=== PATIENT | male | born 1945 | race Caucasian/White ===

== ENCOUNTER 2017-01-28 10:32 | Inpatient (IN) | payer MEDICARE ==
[~2017-01-28] VITALS: Ht 175.3 cm; Wt 74.7 kg
[2017-01-28] VITALS (14 sets, daily range): BP systolic 119–175; BP diastolic 56–78; PULSE 104–128; RESP 15–22; O2SAT 94–99
[~2017-01-28 10:32] MED LIST: BETA15CR38 TP; CALC500T61 PO; FLUT16SP NS; GABA-504 PO; LISI-567 PO; Lidocaine 1% 50 mL Inj ONE; Propofol 10,000 mCg/mL 20 mL Inj ONE; Rocuronium 10 mg/mL 5 mL Inj ONE; TAMS0.4C29 PO; fentaNYL-PF 50 mCg/mL 2 mL Inj ONE
--- NOTE | 2017-01-28 10:40 | ED.REPORT ---
HPI-General Illness Date of Service Jan 28, 2017 ED Provider: Jerry Alvarado MD Patient is a 71 year old male with a hx of HTN and BPH who presents to the ED complaining of vomiting onset this morning. Associated symptoms include severe lower abdominal pressure and fever onset last night. He describes the pressure as constant with radiation up and to either side of his abdomen though worst in the right lower quadrant. He denies dysuria, hematuria, testicular pain or swelling, constipation, or any other symptoms. He is passing gas normally. Nursing Notes Stated Complaint: FEVER, VOMITING Nursing Notes Reviewed: Yes Allergies: Coded Allergies: erythromycin base (Verified Allergy, Mild, Nausea, 08/03/13) tetracycline (Verified Allergy, Mild, Nausea, 08/03/13) Scheduled Fluticasone Propionate (Fluticasone Propionate Nasal) 16 Gm [place].susp 1 SPRAY NS BID Gabapentin (Gabapentin) 400 Mg Capsule 300 MG PO TID Lisinopril (Lisinopril) 20 Mg Tablet 20 MG PO DAILY Tamsulosin ER (Tamsulosin ER) 0.4 Mg Cap.er.24h 0.8 MG PO DAILY Miscellaneous Medications Betamethasone/Propylene Glyc (Betamethasone Dp Jan 0.05% Crm) 15 Gm Cream..g. 15 GM TP General Time Seen by MD: 10:40 Chief Complaint Vomiting Hx Obtained From: Patient Arrived By: Wheelchair Sudden in Onset?: Yes Onset Occurred: 1 - 4 hours ago Symptom Duration: Since onset Past Medical History Past Medical History HTN asthma BPH Chronic back pain Past Surgical History TURP melanoma excision R hernia repair 2014 Laminectomy Smoking History Never Smoker Social History Other Social History: Good social support, Ambulatory Status Independent Review of Systems Full Review of Systems Constitutional: Reports: Fever GI: Reports: Abdominal pain, Nausea, Vomiting, Denies: Constipation Male: Denies Dysuria, Denies Hematuria, Denies Testicular pain, Denies Testicular swelling Complete sys rev & neg: except as marked. Physical Exam Vital Signs Vital Signs Date Time Temp Pulse Resp B/P Pulse Ox O2 Delivery O2 Flow Rate FiO2 01/28/17 12:51 37.9 114 22 142/63 96 Room Air 01/28/17 10:45 37.5 122 22 175/69 94 Room Air Initial VS: Reviewed, Vital signs abnormal Head / Eyes: Atraumatic, Normocephalic Neck: Supple, Full range of motion Skin: Warm, Dry Neurologic: Alert, Oriented, Nonfocal Psychiatric: Mood/affect normal, Behavior normal, Normal thought content General/Constitutional: Awake, Alert, No acute distress Respiratory / Chest: Atraumatic, Breath sounds NL, Breath sounds = bilat, No respiratory distress Cardiovascular: Heart rate NL, Regular rhythm, Heart sounds NL Good radial pulses Abdomen: Atraumatic, Soft, No distention Diffusely tender with most notable tenderness in the RLQ Back: No CVA tenderness Male Genitourinary: Atraumatic, Inspection NL No palpable inguinal hernia Normal testicular lye Circumcised Interpretation & Diagnostics Lab Results Interpretation Result Diagram: 01/28/17 1119 01/28/17 1119 Test 01/28/17 11:19 White Blood Count 19.4th/mm3 (3.8-10.1) Red Blood Count 4.40mil/mm3 (4.40-5.80) Hemoglobin 13.9g/dL (13.8-17.2) Hematocrit 41.8% (41.0-50.0) Mean Corpuscular Volume 95.0fL (81-100) Mean Corpuscular Hemoglobin 31.6pg (27.0-35.0) Mean Corpuscular Hemoglobin Concent 33.3% (32.0-37.0) Red Cell Distribution Width 12.3% (12.3-15.4) Platelet Count 171bil/L (150-400) Neutrophils (%) (Auto) 91.8% (40-74) Lymphocytes (%) (Auto) 3.9% (14-46) Monocytes (%) (Auto) 3.8% (4-12) Eosinophils (%) (Auto) 0% (0-5) Basophils (%) (Auto) 0.1% (0-3) Prothrombin Time 12.0sec (8.1-12.5) Prothromb Time International Ratio 1.12ratio Sodium Level 138mEq/L (134-144) Potassium Level 4.1mEq/L (3.5-5.2) Chloride Level 100mEq/L (97-108) Carbon Dioxide Level 23mmol/L (18-29) Blood Urea Nitrogen 22mg/dL (8-27) Creatinine 1.12mg/dL (0.76-1.27) Estimat Glomerular Filtration Rate 68mL/min (>59) Glucose Level 153mg/dL (60-99) Lactic Acid Level 1.3mmol/L (0.4-2.0) Calcium Level 9.0mg/dL (8.5-10.1) Magnesium Level 1.8mg/dL (1.6-2.6) Total Bilirubin 1.9mg/dL (0.0-1.2) Aspartate Amino Transf (AST/SGOT) 18U/L (0-50) Alanine Aminotransferase (ALT/SGPT) 13U/L (0-44) Alkaline Phosphatase 83U/L (25-160) Total Protein 7.7g/dL (6.4-8.4) Albumin 3.9g/dL (3.4-5.0) Lipase 35U/L (13-60) CT Abd / Pelvis Interpretation IMPRESSION: 1. The sigmoid colon is partially within the right lower quadrant where it is focally thickened. There are scattered sigmoid diverticula. Small amount of free air adjacent to this loop of sigmoid colon is present. The CT findings are suspicious for perforated sigmoid diverticulitis. A differential diagnosis is acute appendicitis given right lower quadrant pathology. There is an appendicolith at the base of the appendix. The tip of the appendix is distended measuring 14 mm. There is fecal material within the appendiceal lumen. The base of the appendix may be mildly thickened. A small amount of fluid is present in the right lower quadrant. No appendiceal wall thickening in the tip of the appendix. 2. There is a tiny 1 cm fluid collection in the right lower quadrant consistent with a small abscess. No drainable fluid is present. 3. Slightly distended small bowel loops with mildly increased small bowel enhancement, likely secondary to spread inflammation/infection. No evidence for small bowel obstruction. 5. A small amount of free fluid in myocardium. Dictated by: Sonia Nicole M.D. on 01/28/2017 at 12:54 Approved by: Sonia Nicole M.D. on 01/28/2017 at 13:36 Study type: Abdominal CT IV contrast Interpretation / Wet Read by: Interpret - Radiologist Re-Eval/Medical Decision Med Decision/Clinical Course In summary, the patient is a 71-year-old male who presents to the emergency room complaining of severe right lower quadrant abdominal pain, fever and vomiting. Upon arrival he is tachycardic with a heart rate in the 120s and is borderline febrile. He has markedly tenderness of his right lower quadrant and abdomen diffusely. He was treated with the below medications: IV Zofran, hydromorphone, fluids IV cipro and Flagyl Laboratory studies were notable as below: leukocytosis 19.4 hematrocrit 41.8 lactic acid 1.3 coag studies nL Abd CT: 1. The sigmoid colon is partially within the right lower quadrant where it is focally thickened. There are scattered sigmoid diverticula. Small amount of free air adjacent to this loop of sigmoid colon is present. The CT findings are suspicious for perforated sigmoid diverticulitis. A differential diagnosis is acute appendicitis given right lower quadrant pathology. There is an appendicolith at the base of the appendix. The tip of the appendix is distended measuring 14 mm. There is fecal material within the appendiceal lumen. The base of the appendix may be mildly thickened. A small amount of fluid is present in the right lower quadrant. No appendiceal wall thickening in the tip of the appendix. 2. There is a tiny 1 cm fluid collection in the right lower quadrant consistent with a small abscess. No drainable fluid is present. 3. Slightly distended small bowel loops with mildly increased small bowel enhancement, likely secondary to spread inflammation/infection. No evidence for small bowel obstruction. 5. A small amount of free fluid in myocardium. Patient was seen and evaluated by surgery Dr. Reyes. Overall constellation of symptoms and presentation felt to be most consistent with acute appendicitis versus ruptured hollow viscus. He was resuscitated with IV fluids overnight borderline tachycardic. 2 sets of blood cultures were obtained prior to initiating IV antibiotics. Decision was made to take the patient to the operating room for further intervention and exploration. He was transferred in stable condition. Time of Eval: 13:11 Re-Evaluation/Progress Note: Rechecked pt. Discussed plan for admission. Patient understands and agrees with plan. All questions addressed at this time. Consultation : Referral / Consult Name: Luli Reyes MD Consulted With: Surgeon Call Returned at: 13:07 Sap Basis: Requested OR, Accepts admit Note: Discussed pt's case. Accepts pt to surgery Counseled Regarding: Diagnosis, Lab results, Need for admission Discharge & Departure Primary Impression: Acute appendicitis Acute appendicitis type: with generalized peritonitis Qualified Code: K35.2 - Acute appendicitis with generalized peritonitis Additional Impressions: Peritonitis Tachycardia Leukocytosis Leukocytosis type: unspecified Qualified Code: D72.829 - Elevated white blood cell count, unspecified Abdominal pain Abdominal location: generalized Qualified Code: R10.84 - Generalized abdominal pain Nausea and vomiting Vomiting type: unspecified Vomiting Intractability: unspecified Qualified Code: R11.2 - Nausea with vomiting, unspecified Disposition: ADMITTED TO HOSPITAL Discharge Condition All VS Reviewed: Yes Condition: Stable Referrals: Carmen Mota MD (PCP) Vikyibmiguel ángel Attestation Portions of this note were transcribed by Lashell Kraft. I, Dr. Alvarado personally performed the history, physical exam and medical decision-making; I reviewed and confirmed the accuracy of the information in the transcribed note. Signed: Jayden Roberts, 01/28/17 copies to: Carmen Mota MD, Beck O MD Jan 28, 2017 10:40 LASHELL KRAFT Jan 28, 2017 10:52
[2017-01-28] MEDS ORDERED: 0.9% Sodium Chloride 1,000 ML IV ONE ×2 (10:49→12:05)
[2017-01-28] MEDS ORDERED: Ondansetron 2 mg/mL 2 mL Inj IVPUSH ONE (10:50)
[2017-01-28] MEDS ORDERED: HYDROmorphone 0.5 mg/0.5 mL iSecure Syringe IVPUSH PRN (10:50)
[2017-01-28 11:37] LABS: BASOPHILS % (AUTO) 0.1 % (0-3); EOSINOPHILS % (AUTO) 0 % (0-5); MONOCYTES % (AUTO) 3.8 % (4-12); Mean Corpuscular Hemoglobin 31.6 pg (27.0-35.0); NEUTROPHILS % (AUTO) 91.8 % (40-74); Platelet Count 171 bil/L (150-400)
[2017-01-28 12:00] LABS: INR 1.12 ratio
[2017-01-28 12:01] LABS: Magnesium 1.8 mg/dL (1.6-2.6)
[2017-01-28] MEDS ORDERED: Lactated Ringer's 1,000 ML IV SCH ×2 (12:03→14:43)
[2017-01-28] MEDS ORDERED: Ondansetron 2 mg/mL 2 mL Inj IVPUSH PRN ×2 (12:05→14:45)
[2017-01-28] MEDS ORDERED: Alum-Mag Hydrox-Simeth 30 mL Suspension PO PRN (12:05)
[2017-01-28] MEDS ORDERED: metroNIDAZOLE Inj 500 MG in IV Premix 1 EACH IV ONE (13:05)
[2017-01-28] MEDS ORDERED: Ciprofloxacin Inj 400 MG in IV Premix 1 EACH IV ONE (13:05)
--- NOTE | 2017-01-28 13:38 | DRSVH ---
PROCEDURE: CT ABDOMEN AND PELVIS WITH CONTRAST ([id number]) INDICATIONS: pain, most in rlq TECHNIQUE: After the administration of intravenous contrast, 5 mm thick sections acquired from the diaphragm to the symphysis. 5 mm coronal and sagittal reformats were acquired. For radiation dose reduction, the following was used: automated exposure control, adjustment of mA and/or kV according to patient siz e. COMPARISON: None. FINDINGS: Image quality: Excellent. ABDOMEN: Lung bases: Bibasilar atelectasis. Heart size is normal. Solid organs: Liver and spleen are normal in size and enhancement. Gallbladder is normal. Biliary system is non dilated. Pancreas enhances normally. No adrenal nodules. Kidneys demonstrate normal size and enhancement, without hydronephrosis. Peritoneum and bowel: There is focal thickening in sigmoid colon chest of the midline to the right w ith associated inflammatory stranding. Colonic diverticula present. There is small amount of free air within the peritoneal cavity. The findings are suspicious for perforated diverticulitis. A small 1 c m fluid collection is seen adjacent to the sigmoid colon suspicious for a small diverticular abscess. No drainable fluid. Appendix is distended. There is a appendicolith at the base of the appendix. The tip of the appendix measures 14 mm in diameter and filled with fecal material. There is no appendiceal wall thickening. A small amount of free fluid is present in the right lower quadrant. Small bowel loops are filled with fluid and appear slightly distended measuring up to 2.[address] There is mildly increased small bowel enhancement in lower abdomen and pelvis. A small amount of free fluid is present in the right lower quadrant. Nodes and vessels: No retroperitoneal or mesenteric adenopathy by size criteria. Aorta and inferior vena cava are normal in size. Miscellaneous: No ventral hernias. PELVIS: Genitourinary: Bladder wall thickness is normal. Miscellaneous: No inguinal hernias or adenopathy. Bones: No suspicious bony lesions. No vertebral body compression fractures. IMPRESSION: 1. The sigmoid colon is partially within the right lower quadrant where it is focally thickened. Ther e are scattered sigmoid diverticula. Small amount of free air adjacent to this loop of sigmoid colon is present. The CT findings are suspicious for perforated sigmoid diverticulitis. A differential effie gnosis is acute appendicitis given right lower quadrant pathology. There is an appendicolith at the base of the appendix. The tip of the appendix is distended measuring 14 mm. There is fecal material w ithin the appendiceal lumen. The base of the appendix may be mildly thickened. A small amount of flui d is present in the right lower quadrant. No appendiceal wall thickening in the tip of the appendix. 2. There is a tiny 1 cm fluid collection in the right lower quadrant consistent with a small abscess. No drainable fluid is present. 3. Slightly distended small bowel loops with mildly increased small bowel enhancement, likely seconda ry to spread inflammation/infection. No evidence for small bowel obstruction. 5. A small amount of free fluid in myocardium. Dictated by: Sonia Nicole M.D. on 01/28/2017 at 12:54 Approved by: Sonia Nicole M.D. on 01/28/2017 at 13:36
[2017-01-28] MEDS ORDERED: Lactated Ringer's 500 ML IV PRN (14:43)
[2017-01-28] MEDS ORDERED: Phenylephrine 10,000 mCg/mL Inj IVPUSH PRN (14:45)
[2017-01-28] MEDS ORDERED: EPHEDrine Sulfate 50 mg/mL Inj IVPUSH PRN (14:45)
[2017-01-28] MEDS ORDERED: Labetalol 5 mg/mL 20 mL Inj IV PRN (14:45)
[2017-01-28] MEDS ORDERED: HYDROmorphone 1 mg/mL Inj IVPUSH PRN (14:45)
[2017-01-28] MEDS ORDERED: Dexamethasone 4 mg/mL Inj IVPUSH PRN (14:45)
[2017-01-28] MEDS ORDERED: Albuterol-Ipratropium 3 mL Inhalation Solution NEB PRN (14:45)
[2017-01-28] MEDS ORDERED: fentaNYL-PF 50 mCg/mL 2 mL Inj IVPUSH PRN (14:45)
[2017-01-28] MEDS ORDERED: Atropine 0.4 mg/mL Inj IVPUSH PRN (14:45)
[2017-01-28] MEDS ORDERED: MetoCLOpramide 5 mg/mL 2 mL Inj IVPUSH PRN (14:45)
[2017-01-28] MEDS ORDERED: hydrALAZINE 20 mg/mL Inj IVPUSH PRN (14:45)
[2017-01-28] MEDS ORDERED: Glycopyrrolate 0.2 MG/ML 1mL Inj ONE (14:55)
[2017-01-28] MEDS ORDERED: Lactated Ringer's 1,000 ML IV ONE ×3 (14:55→15:57)
[2017-01-28] MEDS ORDERED: Neostigmine 1 mg/mL 10 mL Inj ONE (14:55)
[2017-01-28] MEDS ORDERED: Dexamethasone 4 mg/mL Inj ONE (14:55)
[2017-01-28] MEDS ORDERED: Phenylephrine 10,000 mCg/mL Inj ONE (14:55)
[2017-01-28] MEDS ORDERED: EPHEDrine/NS 5 mg/mL 5 mL Syringe ONE (14:55)
[2017-01-28] MEDS ORDERED: MetoCLOpramide 5 mg/mL 2 mL Inj ONE (14:55)
--- NOTE | 2017-01-28 14:58 | HP ---
[address] [address] HISTORY AND PHYSICAL PATIENT: TIERA SAUER : 1945 MR#: [id number] ADMIT: 01/28/2017 JOB ID: [id number] CHIEF COMPLAINT: A 71-year-old gentleman with acute abdomen seen in consultation at the request of Jerry Alvarado MD. HISTORY OF PRESENT ILLNESS: The patient is a 71-year-old gentleman who was in his usual state of good health until yesterday morning. He started having some abdominal pain around noon yesterday but still had a good appetite. He was even able to have dinner last night. He started having fevers and he had problems with pain all night, but he was able to get some sleep. This morning when he woke up he was still having a lot of pain and because of the pain he was having even trouble getting out of bed because any movement hurt. He was able to make it to the bathroom and had a bowel movement. He does continue to pass some gas. Because of the severe pain they went to [facility] and they were sent to the emergency department from there. In the emergency department he was evaluated and Dr. Alvarado called me with the findings of some free air outside the bowel on the CT scan. He got some relief with the pain medication in the emergency department, but it seems to be wearing off and he is having more pain. He had a normal colonoscopy in 2006 and he is due for his next one this year. OTHER MEDICAL PROBLEMS: 1. Hypertension. 2. Asthma. 3. Benign prostatic hyperplasia. 4. Chronic back pain. PRIOR OPERATIONS: 1. Transurethral resection of prostate. 2. Melanoma excision. 3. Right inguinal hernia repair in 2013. 4. Laminectomy. ALLERGIES: 1. ERYTHROMYCIN. 2. TETRACYCLINE. MEDICATIONS: At home: 1. Calcium. 2. Fluticasone. 3. Gabapentin. 4. Lisinopril. 5. Tamsulosin. SOCIAL HISTORY: He never smoked. No history of alcohol abuse. 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 He is here with his . REVIEW OF SYSTEMS: Twelve point review of systems positive for fever, nausea, and vomiting, in addition to the pertinent positives noted in the history of present illness and other medical problems. FAMILY HISTORY: His daughter and father had appendicitis. INVESTIGATIONS: Labs from October 28, 2016: WBC 19.4, hemoglobin 13.9, platelet count 171. Glucose 153, bilirubin 1.9, albumin 3.9. Normal liver function studies otherwise. Creatinine 1.12. INR 1.12. CT abdomen and pelvis was reviewed with Dr. Sonia Nicole and showed abnormal-appearing appendix with appendicolith at the base and the tip of the appendix distended up to 14 mm. The sigmoid colon looped into the right lower quadrant, was also focally thickened, with some scattered sigmoid diverticula. There was small amount of free air in this region. PHYSICAL EXAMINATION: A 71-year-old gentleman in mild distress. Temperature 37.9, pulse 114, respiratory rate 22, blood pressure 142/63, saturating 96% on room air. Eyes: Normal pupils, conjunctivae. Ears, nose, and throat: Normal external appearance. Neck: No lymphadenopathy or jugular venous distention. Respiratory: Normal effort, clear to auscultation. Cardiovascular: Regular rate and rhythm. Chest: Normal. Gastrointestinal: Tender to palpation, more so in the lower abdomen, maximally in the right lower quadrant with focal peritonitis. Neurologic: No gross deficits. Psych: Alert, appropriate. Musculoskeletal: Normal strength in the extremities. Skin: Normal. ASSESSMENT AND PLAN: A 71-year-old gentleman with an acute abdomen. He was started on broad-spectrum antibiotics by Dr. Alvarado. I recommended laparoscopy with appendectomy and possible sigmoid colectomy with colostomy if he indeed has perforated sigmoid diverticulitis. After discussing the risks, benefits, and alternatives, the patient and his agreed to proceed and we will go ahead expeditiously. ALEX
--- NOTE | 2017-01-28 15:30 | PCM.HPANE ---
Patient Data Date of Service: Jan 28, 2017 Surgeon Admitting Provider: Attending Provider:Sommer Reyes MD Primary Care Physician:Carmen Mota MD Other Provider: Reason for Visit Perforated Diverticulitis Ht/WT & BMI Height (Feet): 5 Height (Inches): 9 Weight (Kilograms): 70.4 Body Mass Index 22.9 Allergies Coded Allergies: erythromycin base (Verified Allergy, Mild, Nausea, 08/03/13) tetracycline (Verified Allergy, Mild, Nausea, 08/03/13) Past Anesthesia History Anesthesia History: Denies:: Anesthesia Reactions, Fam Anesthesia Reaction Diabetes History Hx Diabetes?: No MRSA MRSA: No Medications Hypertension Medication: No Home Meds Incl Beta Jean Paul: No Reported Medications Tamsulosin ER 0.4 Mg Cap.er.24h0.8 Mg PO DAILY 30 Days Ref 0 07/25/14 Lisinopril 20 Mg [id number] Mg PO DAILY 30 Days Ref 0 07/25/14 Gabapentin 400 Mg [id number] Mg PO TID 30 Days Ref 0 07/25/14 Fluticasone Propionate (Fluticasone Propionate Nasal)16 Gm [place].susp1 [place] NS BID #16 GM Ref 0 07/25/14 Betamethasone/Propylene Glyc (Betamethasone Dp Aug 0.05% Crm)15 Gm Cream..g.15 Gm TP 07/25/14 Discontinued Reported Medications Calcium Carbonate (Calcium)500 Mg [id number] Mg PO DAILY 07/25/14 History History of ENT Problems?: Yes HEENT History: Positive for:: Sinus Problem (chronic airway) Denies:: Cataracts Hearing Problem Denture Type: None Teeth Condition: Within Normal Limits Hx of Heart Problems?: Yes Cardiovascular History: Positive for:: Hypertension Denies:: AICD Abdominal Aortic Aneurism Atrial Fibrillation Chest Pain Congestive Heart Failure Heart Murmur Pacemaker Hx of Respiratory Problem?: Yes Respiratory History: Positive for:: Asthma Denies:: COPD Emphysema Oxygen Administration Pneumonia Tuberculosis Use of C-PAP Machine Hx Neurologic Problems?: Yes Neurological History: Positive for:: Headaches (migraine with temporary vision loss left eye a few years ago) Denies:: CVA Multiple Sclerosis Parkinson's Disease Seizures Hx of GI Problems?: Yes (free air in abdomen, possible appy vs sigmoid diverticulitis) Hx of Problems?: No Male Hx: Positive for:: Prostate Problems (TURP, BPH current) Hx Musculoskeletal Problems?: Yes Musculoskeletal History: Positive for:: Back Injury (chronic back pain, compression C 4,5,6) Hx of Psycho/Social Problems?: No Hx Surgeries?: Yes (laminectomy, TURP, melanoma, hernia repair) Hx Any Other Health Problems?: Yes Other History: Positive for:: Cancer (melanoma 2005, facial neck) Denies:: Thyroid Disease History Blood Transfusions: Denies:: Blood Transfusions Hx Diabetes: No Hx Alcohol Use: YesHx Substance Use: No Smoking Status: Never Smoker Stop/Bang Treated for Sleep Apnea?: No Do You Have a CPAP Machine?: No ELDA Risk Assessment: Low Risk, <3 Yes Risk Assessment Category Category 1A: Patient has history of documented sleep apnea, and HAS NOT received any narcotic, sedative or anesthesia administration during this stay. Category 1B: Patient has history of documented sleep apnea, and HAS received any narcotic , sedative or anesthesia administration during this stay Category 2: Patient has SUSPECTED Obstructive Sleep Apnea, and HAS received any narcotic , sedative or anesthesia administration during this stay. Category 3: Patient has SUSPECTED Obstructive Sleep Apnea and HAS NOT received narcotic, sedative or anesthesia administration during this stay. Category 4: Outpatient in Procedural Areas with known sleep apnea or who screen positive for High Risk via the STOP/BANG questionnaire. Exam Exam Vital Signs Vital Signs Date Time Temp Pulse Resp B/P Pulse Ox O2 Delivery O2 Flow Rate FiO2 01/28/17 12:51 37.9 114 22 142/63 96 Room Air 01/28/17 10:45 37.5 122 22 175/69 94 Room Air General Appearance: Alert, Oriented X3, Cooperative HEENT/AIRWAY: MP 2, Neck Movement (> 3 FB, full), Mouth Opening (Wide) Lungs: Clear to Auscultation, Normal Air Movement Heart: Normal S1, Normal S2, Other (tachy) Meds/Labs/Diagnostics Admission Meds Current Medications Sodium Chloride (Normal Saline) 1,000 ml @ 0 mls/hr Q0M ONCE IV Last administered on 01/28/17 11:13; Start 01/28/17 at 10:49; Stop 01/28/17 at 10:51 ; Status DC Ondansetron HCl 8 mg 8 mg ONCE ONCE IVPUSH Last administered on 01/28/17 11: 13; Start 01/28/17 at 10:50; Stop 01/28/17 at 10:51; Status DC Sodium Chloride 1,000 ml @ 0 mls/hr Q0M ONCE IV Last administered on 12:05; Start 01/28/17 at 12:05; Stop 01/28/17 at 12:06; Status DC Metronidazole/ Sodium Chloride 500 mg/Premix 100 ml @ 200 mls/hr ONCE ONCE IV Last administered on 01/28/17 13:26; Start 01/28/17 at 13:05; Stop 01/28/17 at 13:34; Status DC Ciprofloxacin Lactate/Premix (Cipro Inj/IV Premix) 200 ml @ 200 mls/hr ONCE ONCE IV Last administered on 01/28/17 13:26; Start 01/28/17 at 13:05; Stop at 14:04; Status DC Labs Test 01/28/17 11:19 White Blood Count 19.4th/mm3 (3.8-10.1) Red Blood Count 4.40mil/mm3 (4.40-5.80) Hemoglobin 13.9g/dL (13.8-17.2) Hematocrit 41.8% (41.0-50.0) Mean Corpuscular Volume 95.0fL (81-100) Mean Corpuscular Hemoglobin 31.6pg (27.0-35.0) Mean Corpuscular Hemoglobin Concent 33.3% (32.0-37.0) Red Cell Distribution Width 12.3% (12.3-15.4) Platelet Count 171bil/L (150-400) Neutrophils (%) (Auto) 91.8% (40-74) Lymphocytes (%) (Auto) 3.9% (14-46) Monocytes (%) (Auto) 3.8% (4-12) Eosinophils (%) (Auto) 0% (0-5) Basophils (%) (Auto) 0.1% (0-3) Prothrombin Time 12.0sec (8.1-12.5) Prothromb Time International Ratio 1.12ratio Sodium Level 138mEq/L (134-144) Potassium Level 4.1mEq/L (3.5-5.2) Chloride Level 100mEq/L (97-108) Carbon Dioxide Level 23mmol/L (18-29) Blood Urea Nitrogen 22mg/dL (8-27) Creatinine 1.12mg/dL (0.76-1.27) Estimat Glomerular Filtration Rate 68mL/min (>59) Glucose Level 153mg/dL (60-99) Lactic Acid Level 1.3mmol/L (0.4-2.0) Calcium Level 9.0mg/dL (8.5-10.1) Magnesium Level 1.8mg/dL (1.6-2.6) Total Bilirubin 1.9mg/dL (0.0-1.2) Aspartate Amino Transf (AST/SGOT) 18U/L (0-50) Alanine Aminotransferase (ALT/SGPT) 13U/L (0-44) Alkaline Phosphatase 83U/L (25-160) Total Protein 7.7g/dL (6.4-8.4) Albumin 3.9g/dL (3.4-5.0) Lipase 35U/L (13-60) Plan Impression Patient chart reviewed, patient interviewed and anesthestic plan with risks, benefits, and alternatives discussed, and informed consent obtained. NPO per Anesth. Guidelines: Yes ASA Physical Status: ASA3 Severe Disease Anesthetic Plan: GA Bene/Risks/Altern/Consents: Yes HP Complete Prior to Induction: Yes Other SIRS, question sepsis. HR 110-120s, WBC > 15, febrile > 38 Nehemias Moore MD Jan 28, 2017 14:13
[2017-01-28] MEDS ORDERED: Bupivacaine 0.5% 50 mL Inj INFILTRATE ONE (15:53)
[2017-01-28] MEDS ORDERED: Sodium Chloride LOK Flush 10 mL Syringe IVFLUSH PRN (16:30)
[2017-01-28] MEDS ORDERED: Acetaminophen IV 1,000 MG in IV Premix 1 EACH IV SCH (16:30)
--- NOTE | 2017-01-28 16:32 | PCM.SURGPO ---
Immediate Operative Note Date of Surgery: Jan 28, 2017 Pre Operative Diagnosis Acute Abdomen - possible perforated Appendicitis or diverticulitis Post Operative Diagnosis Acute Perforated Appendicitis Procedure Laparoscopic Appendectomy Surgeon and Sales Representative Consultant Surgeon: Luli Reyes MD Assistants: Saturnino Oviedo PAC Findings Perforated Appendicitis with Pus in the RLQ Complications There were no periprocedural complications identified. Surgical Specimen Removed: Yes Specimen sent to Pathology: Yes Anesthetic Administered: GA Grafts, Implants: None Output, Estimated Blood Loss: 0 Blood Admin during surgery: No Attending Statement Lead Sql Developer listed was medically necessary for the successful completion of the case Luli Reyes MD Jan 28, 2017 16:32
[2017-01-28] MEDS ORDERED: Piper-Tazo 3.375 Gm/50 mL D5W Minibag Plus - Q8H over 4 hrs IV ONE ×2 (16:35)
--- NOTE | 2017-01-28 16:53 | OP ---
[address] [address] OPERATIVE REPORT PATIENT: TIERA SAUER : 1945 MR#: [id number] ADMIT: 01/28/2017 JOB ID: [id number] DATE OF SURGERY: 01/28/2017 PREOPERATIVE DIAGNOSIS(ES): Acute abdomen, possible acute perforated appendicitis or sigmoid diverticulitis. POSTOPERATIVE DIAGNOSIS(ES): Acute perforated appendicitis. PROCEDURE PERFORMED: Laparoscopic appendectomy. SURGEON: Luli Reyes MD. WELDING FOREMAN: Saturnino Oviedo PA-C. INDICATIONS: The patient is a 71-year-old gentleman who presented with 24 hours of severe abdominal pain and was found to be febrile and tachycardic in the emergency department with lower abdominal peritonitis. CT findings were concerning for diverticulitis or perforated appendicitis and had a white count close to 20,000. He was started on antibiotics and was taken to the operating room after discussing the risks, benefits, and alternatives. PROCEDURE DETAILS: He was placed in a supine position. Underwent smooth induction of general anesthesia. Lynn catheter was placed. Abdomen was prepped and draped in the usual sterile fashion. Surgical time-out was undertaken using safety checklist, and all were in agreement. We began by making an infraumbilical incision, entered the abdomen safely using open Amanda technique. After that, I noticed inflammation in the right lower quadrant and placed two 5 mm ports, one in the suprapubic location and one in the left lower abdomen. After I mobilized the inflamed small bowel which was stuck to the right lower quadrant, I readily noticed perforated appendix sitting against the pelvic sidewall. At this point, I suctioned out the pus in the area, sent it for culture, and mobilized the appendix bluntly off the retroperitoneum and divided the mesoappendix with electrocautery. I took the dissection all the way down to completely healthy base and divided the appendiceal base with a 45 mm Endo-GAIL stapler and placed it in an EndoCatch bag. After that, I irrigated and suctioned out all fluid from the right lower quadrant and the pelvis and removed the appendix along with the bag through the umbilical port site. After desufflating the abdomen we closed the umbilical port fascia with [id number] 0-Vicryl suture and skin was reapproximated with 4-0 Monocryl. Steri-Strips and sterile dressing were applied. Patient was recovered from anesthesia and was taken to the recovery room in stable condition.
[2017-01-28] MEDS ORDERED: MeTOProlol 1 mg/mL 5 mL Inj ONE (17:02)
[2017-01-28] MEDS ORDERED: MeTOProlol 1 mg/mL 5 mL Inj IVPUSH ONE (17:05)
[2017-01-28 17:52] LABS: APPEARANCE,URINE CLEAR (CLEAR,HAZY); COLOR,URINE YELLOW (YELLOW)
--- NOTE | 2017-01-28 17:52 | PCM.ANEP1 ---
Post Anesthesia PACU Phase 1 Assessment Date of Service: Jan 28, 2017 Vital Signs Vital Signs Date Time Temp Pulse Resp B/P Pulse Ox O2 Delivery O2 Flow Rate FiO2 01/28/17 17:48 37.7 115 20 128/63 Nasal Cannula 2.00 01/28/17 17:20 38.0 114 15 125/59 97 Nasal Cannula 2 01/28/17 17:17 104 15 128/62 96 Nasal Cannula 2 01/28/17 17:08 114 16 134/68 95 Nasal Cannula 2 01/28/17 17:05 114 15 134/64 98 Nasal Cannula 3 01/28/17 17:02 37.9 122 16 137/78 96 Nasal Cannula 3 01/28/17 16:59 127 18 133/64 95 Nasal Cannula 3 01/28/17 16:50 122 15 139/62 99 Simple Mask 9 01/28/17 16:46 126 19 119/61 99 Simple Mask 9 01/28/17 16:41 124 18 132/56 98 Simple Mask 9 01/28/17 16:35 37.5 128 17 139/60 97 Simple Mask 9 01/28/17 12:51 37.9 114 22 142/63 96 Room Air 01/28/17 10:45 37.5 122 22 175/69 94 Room Air Anesthetic Administered: GA Level of Alertness: Awake, talking RICARDO's with Equal Strength: Yes Pain: Yes Nausea or Vomiting: No CV Function & Hydration Stable: Yes Airway Device: Oralpharangeal Airway Oxygen Delivery: Simple Mask Lungs: Normal Air Movement Dermatome Level: Full Sensation Summary Metoprolol given for persistently elevated HR despite fluid resuscitation. BP stable. PACU Phase 2 Assessment Complications: No Follow up Care: N/A Patient Instructions Provided: N/A Nehemias Moore MD Jan 28, 2017 17:52
[2017-01-28 17:53] LABS: OCCULT BLOOD,URINE SMALL (NEGATIVE); UROBILINOGEN,URINE NORMAL (NORMAL)
[2017-01-28] MEDS: Dextrose 5% Lactated Ringer's 1,000 ML IV SCH (18:37)
[2017-01-28] MEDS: Piperacillin-Tazo 3.375 Gm Inj 3.375 GM in Dextrose 5% Minibag Plus 50 ML IV SCH (21:13)
[2017-01-29 02:15] VITALS: BP 127/69; PULSE 82; RESP 20; O2SAT 98
[2017-01-29] MEDS: Dextrose 5% Lactated Ringer's 1,000 ML IV SCH (02:35)
[2017-01-29] MEDS ORDERED: Acetaminophen IV 1,000 MG in IV Premix 1 EACH IV SCH (04:50)
[2017-01-29] MEDS: Piperacillin-Tazo 3.375 Gm Inj 3.375 GM in Dextrose 5% Minibag Plus 50 ML IV SCH ×3 (04:57→20:49)
[2017-01-29 06:43] VITALS: BP 102/64; PULSE 78; RESP 20; O2SAT 95
[2017-01-29 08:11] VITALS: BP 110/67; PULSE 77; RESP 16; O2SAT 94
[2017-01-29] MEDS: Fluticasone 0.05% 15 Spray/2 Gm 16 Gm Nasal Spray NASAL SCH ×2 (08:12→20:30)
[2017-01-29] MEDS ORDERED: ZYL100 PO (10:15)
--- NOTE | 2017-01-29 11:19 | PCM.PNSURG ---
Subjective Date of Service: Jan 29, 2017 Visit Information: Perforated Appendicitis with Peritonitis Laparoscopic Appendectomy 01/28/17 Post-Op Day # 1 Date of Admission: Jan 28, 2017 at 14:19 Hospital Day # 2 Subjective: No nausea, Slowly improving urine stream Objective Vital Sign- Last 8 Hours Date Time Temp Pulse Resp B/P Pulse Ox O2 Delivery O2 Flow Rate FiO2 01/29/17 08:11 36.7 77 16 110/67 94 Room Air 01/29/17 06:43 37.0 78 20 102/64 95 Nasal Cannula 2.00 Intake and Output- Last 8 Hour 01/29/17 Cumulative From/Thru 07:00 01/28/17 10:45 - 01/29/17 06:43 Intake Total 1737 ml 6337 ml Output Total 760 ml 1565 ml Balance 977 ml 4772 ml Intake Oral 800 ml 800 ml IV Total 937 ml 5537 ml Output Urine Total 760 ml 1560 ml Estimated Blood Loss 5 ml # Bowel Movements 0 0 Abdomen: Soft, Other (dressings dry) Result Diagram: 01/28/17 1119 01/28/17 1119 Assessment & Plan Impression Doing well Problems: Plan Advance diet as tolerated Continue IV Antibiotics Ambulate Restart Home meds Continue to hold Lininopril Monitor post-void residuals Luli Reyes MD Jan 29, 2017 11:19
[2017-01-29] MEDS: Ondansetron 2 mg/mL 2 mL Inj IVPUSH PRN ×2 (12:54→13:37)
[2017-01-29 13:43] VITALS: BP 145/73; PULSE 91; RESP 20; O2SAT 94
[2017-01-29] MEDS: Acetaminophen IV 1,000 MG in IV Premix 1 EACH IV PRN (17:26)
[2017-01-29] MEDS: MetoCLOpramide 5 mg/mL 2 mL Inj IVPUSH PRN ×2 (17:26→23:38)
[2017-01-29] MEDS: Dextrose 5% 0.45% NaCl 1,000 ML IV SCH (17:48)
[2017-01-29] MEDS ORDERED: Sodium Biphos-Phos 133 mL Enema RECTAL ONE (18:10)
[2017-01-29 18:14] VITALS: BP 129/68; PULSE 106; RESP 20; O2SAT 95
[2017-01-29 20:40] VITALS: BP 142/61; PULSE 98; RESP 20; O2SAT 92
[2017-01-30] MEDS: Acetaminophen IV 1,000 MG in IV Premix 1 EACH IV PRN (04:20)
[2017-01-30 04:26] VITALS: BP 148/77; PULSE 96; RESP 18; O2SAT 94
[2017-01-30] MEDS: Piperacillin-Tazo 3.375 Gm Inj 3.375 GM in Dextrose 5% Minibag Plus 50 ML IV SCH ×3 (05:21→21:10)
[2017-01-30] MEDS: Dextrose 5% 0.45% NaCl 1,000 ML IV SCH ×2 (05:26→18:18)
[2017-01-30] MEDS: Fluticasone 0.05% 15 Spray/2 Gm 16 Gm Nasal Spray NASAL SCH ×2 (08:27→21:12)
[2017-01-30 08:56] VITALS: BP 142/80; PULSE 97; RESP 16; O2SAT 93
[2017-01-30 12:44] VITALS: BP 146/80; PULSE 96; RESP 18; O2SAT 98
--- NOTE | 2017-01-30 17:22 | PCM.PNSURG ---
Subjective Date of Service: Jan 30, 2017 Visit Information: Perforated Appendicitis with Peritonitis & Bacteremia Laparoscopic Appendectomy 01/28/17 Post-Op Day # 2 Date of Admission: Jan 28, 2017 at 14:19 Hospital Day # 3 Subjective: Few episodes of emesis yesterday. Small bowel movement with Enema today Objective Vital Sign- Last 8 Hours Date Time Temp Pulse Resp B/P Pulse Ox O2 Delivery O2 Flow Rate FiO2 01/30/17 12:44 36.9 96 18 146/80 98 Room Air Intake and Output- Last 8 Hour 01/30/17 Cumulative From/Thru 07:00 01/28/17 10:45 - 01/30/17 06:40 Intake Total 800 ml 8273 ml Output Total 1250 ml 3890 ml Balance -450 ml 4383 ml Intake Oral 800 ml 2520 ml IV Total 5753 ml Output Urine Total 1250 ml 3885 ml Estimated Blood Loss 5 ml # Bowel Movements 0 0 Abdomen: Soft, Distended, Other (Incisions C/D/I) Result Diagram: 01/28/17 1119 01/28/17 1119 Assessment & Plan Impression Doing okay, awaiting return of bowel function Problems: Plan Ambulate Minimize opioids Check CBC, BMP in AM Continue IV fluids, Luli Abdalla MD Jan 30, 2017 17:22
[2017-01-30 21:32] VITALS: BP 163/84; PULSE 102; RESP 16; O2SAT 97
[2017-01-31] MEDS: Piperacillin-Tazo 3.375 Gm Inj 3.375 GM in Dextrose 5% Minibag Plus 50 ML IV SCH ×3 (05:07→21:21)
[2017-01-31] MEDS: MetoCLOpramide 5 mg/mL 2 mL Inj IVPUSH PRN (05:15)
[2017-01-31] MEDS ORDERED: Sodium Chloride LOK Flush 10 mL Syringe IVFLUSH PRN ×2 (06:05)
[2017-01-31] MEDS ORDERED: TPN Per Pharmacist XX ONE (06:05)
[2017-01-31 06:35] LABS: BASOPHILS % (AUTO) 0.1 % (0-3); EOSINOPHILS % (AUTO) 1.6 % (0-5); MONOCYTES % (AUTO) 7.2 % (4-12); Mean Corpuscular Hemoglobin 31.3 pg (27.0-35.0); Mean Corpuscular Volume 96.3 fL (81-100); Platelet Count 203 bil/L (150-400)
[2017-01-31 07:06] LABS: Bilirubin, Direct 0.3 mg/dL (0.0-0.3); Magnesium 1.9 mg/dL (1.6-2.6); Phosphorus 2.1 mg/dL (2.5-4.9)
--- NOTE | 2017-01-31 07:14 | PCM.PNSURG ---
Subjective Date of Service: Jan 31, 2017 Visit Information: Perforated Appendicitis with Peritonitis & Bacteremia Laparoscopic Appendectomy 01/28/17 Post-Op Day # 3 Date of Admission: Jan 28, 2017 at 14:19 Hospital Day # 4 Subjective: Multiple episodes of bilious emesis Objective Intake and Output- Last 8 Hour 01/31/17 Cumulative From/Thru 07:00 01/28/17 10:45 - 01/31/17 06:11 Intake Total 964 ml 9637 ml Output Total 4490 ml Balance 964 ml 5147 ml Intake Oral 2920 ml IV Total 964 ml 6717 ml Output Urine Total 4485 ml Estimated Blood Loss 5 ml # Bowel Movements 1 Abdomen: Soft, Distended Result Diagram: 01/31/17 0513 01/31/17 0513 Assessment & Plan Impression Ileus Problems: Plan PICC, TPN NPO, NG Abd Xray Ambulate, Avoid opioids Continue Luli Abdalla MD Jan 31, 2017 07:14
[2017-01-31 07:17] VITALS: BP 158/80; PULSE 96; RESP 16; O2SAT 92
[2017-01-31 09:07] VITALS: BP 143/84; PULSE 94; RESP 16; O2SAT 92
[2017-01-31] MEDS: Fluticasone 0.05% 15 Spray/2 Gm 16 Gm Nasal Spray NASAL SCH ×2 (09:41→21:21)
[2017-01-31] MEDS: Dextrose 5% 0.45% NaCl 1,000 ML IV SCH ×2 (10:38→14:16)
--- NOTE | 2017-01-31 11:20 | PCM.CONPHA ---
Objective Vital Signs Date Time Temp Pulse Resp B/P Pulse Ox O2 Delivery O2 Flow Rate FiO2 01/31/17 09:07 36.7 94 16 143/84 92 Room Air 01/31/17 07:17 36.7 96 16 158/80 92 Room Air 01/30/17 21:32 37.1 102 16 163/84 97 Room Air 01/30/17 12:44 36.9 96 18 146/80 98 Room Air Intake and Output 01/29/17 01/30/17 01/31/17 00:00 00:00 00:00 Intake Total 4600 ml 2873 ml 1200 ml Output Total 805 ml 1835 ml 1850 ml Balance 3795 ml 1038 ml -650 ml Weight (Kilograms): 77.800 Height (Feet): 5 Height (Inches): 9.00 Test 01/28/17 11:19 01/28/17 17:16 01/31/17 05:13 Prothrombin Time 12.0sec (8.1-12.5) Prothromb Time International Ratio 1.12ratio Lactic Acid Level 1.3mmol/L (0.4-2.0) Lipase 35U/L (13-60) Urine Color Yellow (YELLOW) Urine Appearance Clear (CLEAR,HAZY) Urine pH 6.0 (5.0-8.0) Urine Specific [place] 1.025 (1.003-1.035) Urine Protein Tracemg/dL (NEG,TRACE) Urine Glucose (UA) Negativemg/dL (NEGATIVE) Urine Ketones Negativemg/dL (NEGATIVE) Urine Occult Blood Small (NEGATIVE) Urine Nitrite Negative (NEGATIVE) Urine Bilirubin Negative (NEGATIVE) Urine Urobilinogen Normalmg/dL (NORMAL) Urine Leukocyte Esterase Negative (NEGATIVE) Urine RBC 0-2/hpf (0-2) Urine WBC 0-5/hpf (0-5) Urine Epithelial Cells None/hpf (NONE-MOD) Urine Crystals None seen (NONE SEEN) Urine Bacteria Few/hpf (NONE-FEW) Urine Hyaline Casts None/lpf (NONE) Urine Granular Casts None seen (NONE SEEN) Urine Waxy Casts None seen (NONE SEEN) Urine Red Blood Cell Casts None seen (NONE SEEN) Urine White Blood Cell Casts None seen (NONE SEEN) Urine Mucus None seen (None Seen) Urine Trichomonas None seen (NONE SEEN) Urine Yeast None (NONE SEEN) Urinalysis Comment None Urine Culture Reflexed Not indicated White Blood Count 11.0th/mm3 (3.8-10.1) Red Blood Count 3.77mil/mm3 (4.40-5.80) Hemoglobin 11.8g/dL (13.8-17.2) Hematocrit 36.3% (41.0-50.0) Mean Corpuscular Volume 96.3fL (81-100) Mean Corpuscular Hemoglobin 31.3pg (27.0-35.0) Mean Corpuscular Hemoglobin Concent 32.5% (32.0-37.0) Red Cell Distribution Width 12.2% (12.3-15.4) Platelet Count 203bil/L (150-400) Neutrophils (%) (Auto) 80.0% (40-74) Lymphocytes (%) (Auto) 10.9% (14-46) Monocytes (%) (Auto) 7.2% (4-12) Eosinophils (%) (Auto) 1.6% (0-5) Basophils (%) (Auto) 0.1% (0-3) Sodium Level 139mEq/L (134-144) Potassium Level 3.9mEq/L (3.5-5.2) Chloride Level 101mEq/L (97-108) Carbon Dioxide Level 26mmol/L (18-29) Blood Urea Nitrogen 18mg/dL (8-27) Creatinine 1.06mg/dL (0.76-1.27) Estimat Glomerular Filtration Rate 73mL/min (>59) Glucose Level 126mg/dL (60-99) Calcium Level 8.4mg/dL (8.5-10.1) Phosphorus Level 2.1mg/dL (2.5-4.9) Magnesium Level 1.9mg/dL (1.6-2.6) Total Bilirubin 1.1mg/dL (0.0-1.2) Direct Bilirubin 0.3mg/dL (0.0-0.3) Aspartate Amino Transf (AST/SGOT) 15U/L (0-50) Alanine Aminotransferase (ALT/SGPT) 10U/L (0-44) Alkaline Phosphatase 59U/L (25-160) Total Protein 5.8g/dL (6.4-8.4) Albumin 3.0g/dL (3.4-5.0) Prealbumin 15mg/dL (20-40) Triglycerides Level 119mg/dL (0-149) Assessment/Plan Assessment/Plan PARENTERAL NUTRITION ORDERS 1 31-Jan-17 Standard Hang Time: 2100 Substrates Total kcal: 960 AMINO ACIDS 50 g DEXTROSE 150 g Total Volume (mL): 1500 LIPIDS 25 g Sterile Water for Injection mL To Infuse Over (hrs): 24 Total Volume 1500 mL At at a rate of (mL/hr): 63 Additives Sodium Chloride 90 mEq "typical" daily requirements Sodium Acetate 20 mEq Sodium 50-120mEq Potassium Chloride 10 mEq Potassium 60-120mEq Potassium Phosphate 40 mEq Phosphate 20-40mEq Calcium Gluconate 8 mEq Magnesium 8-32mEq Magnesium Sulfate 4 mEq Calcium 9-22mEq Acetate* 80-120mEq Chloride* 80-120mEq Regular Insulin 0 units *Depending on acid-base status Famotidine 0 mg Multivitamins 1 std dose Insulin Regimen Trace Elements 1 std dose none Thiamine 100 mg Regular Low Intensity Subcut Folic Acid 1 mg Regular Medium Intensity Subcut Ascorbic Acid 500 mg Regular High Intensity Subcut Regular Insulin Infusion Other: Special Instructions: To be infused via central line only. For delay or inturruption of TPN contact the pharmacist for alternative replacement solution. Signature Date: Mikael Shankar 0 [facility] Home Kim Pharm.D Jan 31, 2017 11:20
--- NOTE | 2017-01-31 14:37 | DRSVH ---
PROCEDURE: X-RAY PICC LINE PLACEMENT BY NURSE ([id number]) INDICATIONS: tpn COMPARISON: None. FINDINGS: PICC was placed by the intravenous therapy team from the right side. Fluoroscopic spot fi lm demonstrates tip of PICC in the lower SVC. IMPRESSION: Tip of PICC lies within the lower SVC. Dictated by: Baldemar ORTEGA Interpreted: Brennan Stewart MD on 01/31/2017 at 13:49 Approved by: Brennan Stewart M.D. on 01/31/2017 at 14:35
[2017-01-31 16:18] VITALS: BP 152/80; PULSE 86; RESP 16; O2SAT 96
--- NOTE | 2017-01-31 17:06 | DRSVH ---
PROCEDURE: X-RAY ABDOMEN WITH ERECT AND/OR DECUBITUS VIEWS ([id number]) INDICATIONS: POST OPERATIVE; POSSIBLE ILEUS TECHNIQUE: 2 views of the abdomen were acquired. COMPARISON: [facility], CT, CT ABD PELVIS W CON, 01/28/2017, 12:28. FINDINGS: Surgical changes and devices: L4-L5 pedicle screws.. Bowel: Abnormal bowel gas pattern is present. Asymmetric dilatation of small bowel throughout the a bdomen and pelvis with paucity of gas within the colon. Differential air-fluid levels noted on the u pright examination. No pneumatosis or bowel wall thickening. No pneumoperitoneum. Bibasilar airspace opacities present in small left effusion. Soft tissues: No masses; visualized solid organ contours appear normal in size. No suspicious abdom inal calcifications. Bones: No suspicious bony abnormalities. IMPRESSION: 1. Small bowel obstruction. 2. Bibasilar atelectasis versus aspiration or pneumonia. Correlate clinically. Dictated by: Baldemar Boudreaux A Interpreted: Samantha Capone MD on 01/31/2017 at 11:00 Approved by: Samantha Capone M.D. on 01/31/2017 at 17:04
[2017-01-31 21:00] VITALS: BP 151/76; PULSE 84; RESP 16; O2SAT 96
[2017-01-31] MEDS: TPN Per Pharmacist XX SCH (21:22)
[2017-01-31] MEDS: Total Parenteral Nutrition 1 BAG IV SCH (21:22)
[2017-02-01] MEDS: Piperacillin-Tazo 3.375 Gm Inj 3.375 GM in Dextrose 5% Minibag Plus 50 ML IV SCH ×3 (05:04→21:28)
[2017-02-01 05:30] VITALS: BP 142/68; PULSE 79; RESP 16; O2SAT 92
[2017-02-01 08:00] LABS: Magnesium 2.2 mg/dL (1.6-2.6); Phosphorus 3.3 mg/dL (2.5-4.9)
[2017-02-01 08:10] VITALS: BP 147/80; PULSE 76; RESP 16; O2SAT 95
[2017-02-01] MEDS: Fluticasone 0.05% 15 Spray/2 Gm 16 Gm Nasal Spray NASAL SCH ×2 (08:20→21:28)
[2017-02-01] MEDS: MetoCLOpramide 5 mg/mL 2 mL Inj IVPUSH PRN ×2 (09:06→14:18)
--- NOTE | 2017-02-01 10:39 | PCM.PHAPRO ---
Progress TPN PER PHARMACY PARENTERAL NUTRITION ORDERS 2 - Standard Hang Time: 2100 Substrates Total kcal: 960 AMINO ACIDS 50 g DEXTROSE 150 g Total Volume (mL): 1500 LIPIDS 25 g Sterile Water for Injection mL To Infuse Over (hrs): 24 Total Volume 1500 mL At at a rate of (mL/hr): 63 Additives Sodium Chloride 90 mEq "typical" daily requirements Sodium Acetate 20 mEq Sodium 50-120mEq Potassium Chloride 10 mEq Potassium 60-120mEq Potassium Phosphate 40 mEq Phosphate 20-40mEq Calcium Gluconate 10 mEq Magnesium 8-32mEq Magnesium Sulfate 4 mEq Calcium 9-22mEq Acetate* 80-120mEq Chloride* 80-120mEq Regular Insulin 0 units *Depending on acid-base status Famotidine 0 mg Multivitamins 1 std dose Insulin Regimen Trace Elements 1 std dose none Thiamine 100 mg Regular Low Intensity Subcut Folic Acid 1 mg Regular Medium Intensity Subcut Ascorbic Acid 500 mg Regular High Intensity Subcut Regular Insulin Infusion Other: Special Instructions: To be infused via central line only. For delay or inturruption of TPN contact the pharmacist for alternative replacement solution. Signature Date: Mikael Shankar [address] [facility] Pharmacy will continue to follow, thank you. Kimberly Machado PharmD Feb 01, 2017 10:39
[2017-02-01 16:27] VITALS: BP 161/80; PULSE 75; RESP 18; O2SAT 95
[2017-02-01] MEDS: Total Parenteral Nutrition 1 BAG IV SCH (21:25)
[2017-02-01] MEDS: TPN Per Pharmacist XX SCH (21:28)
[2017-02-01 21:40] VITALS: BP 158/81; PULSE 77; RESP 18; O2SAT 95
[2017-02-02] MEDS: MetoCLOpramide 5 mg/mL 2 mL Inj IVPUSH PRN ×2 (00:25→23:56)
[2017-02-02 05:10] VITALS: BP 130/77; PULSE 77; RESP 16; O2SAT 95
[2017-02-02] MEDS: Piperacillin-Tazo 3.375 Gm Inj 3.375 GM in Dextrose 5% Minibag Plus 50 ML IV SCH ×3 (05:21→21:25)
[2017-02-02 05:38] LABS: Mean Corpuscular Hemoglobin 31.3 pg (27.0-35.0); Mean Corpuscular Volume 93.2 fL (81-100); Platelet Count 223 bil/L (150-400)
[2017-02-02 05:52] LABS: BASOPHILS % (AUTO) 0 % (0-3); EOSINOPHILS % (AUTO) 6 % (0-5); MONOCYTES % (AUTO) 10 % (4-12); NEUTROPHILS % (AUTO) 70 % (40-74)
[2017-02-02 05:58] LABS: Magnesium 1.9 mg/dL (1.6-2.6)
[2017-02-02 08:07] VITALS: BP 154/72; PULSE 67; RESP 14; O2SAT 96
--- NOTE | 2017-02-02 09:39 | PATH ---
SURGICAL PATHOLOGY Attending Physician:Luli Reyes MD CASE STATUS: Signed Out PATIENT NAME: TIERA SAUER PID: [id number] : 1945 DATE COLLECTED:01/28/2017 00:00 SPECIMEN: Appendix CLINICAL HISTORY: ACUTE ABDOMEN POSSIBLE PERFORATED APPENDIX 1). APPENDIX FINAL DIAGNOSIS: Appendix, Appendectomy: Acute suppurative appendicitis with serositis. No evidence of neoplasm. ICD10: K35.80 GROSS DESCRIPTION: The specimen is received in one formalin filled container labeled with the patient's name, sublabeled "appendix" and consists of one cylinder of call appendix measuring 6.0 x 1.2 x 1.2 CM. The serosal surface is light call, smooth and glistening. There is a large amount of attached fatty tissue. Sectioning reveals a wall to be thickened to 0.2-0.3 CM. The lumen contains a call-brown friable to semisolid material. Rep. sections including the tip (sectioned longitudinally), proximal margin (inked blue), and random cross-sections are submitted in one cassette. 01/31/2017MA ICD-9 CODES: CPT CODES: 1: 57908 Electronically Signed Out Lillie Dinh MD [facility] Pathology [facility] [address], [place] [address] Technical component performed at [facility], [address] [place] [address] Ave[address], [place], [address]
[2017-02-02] MEDS ORDERED: Sodium Biphos-Phos 133 mL Enema RECTAL ONE (10:20)
--- NOTE | 2017-02-02 10:22 | DRSVH ---
PROCEDURE: X-RAY ABDOMEN WITH ERECT AND/OR DECUBITUS VIEWS ([id number]) INDICATIONS: f/u ileus TECHNIQUE: 2 views of the abdomen were acquired. COMPARISON: [facility], CT, CT ABD PELVIS W CON, 01/28/2017, 12:28. [facility] al, CR, XR ABD W ERECT + OR DECUB 2 VW, 01/31/2017, 9:52. FINDINGS: Surgical changes and devices: L4-L5 pedicle screws.. Bowel: Abnormal bowel gas pattern is present. Asymmetric dilatation of small bowel throughout the a bdomen and pelvis with paucity of gas within the colon. Small bowel gaseous distention has increased from prior examination. Differential air-fluid levels noted on the upright examination. No pneumato sis or bowel wall thickening. No pneumoperitoneum. Bibasilar airspace opacities present in small left effusion. Soft tissues: No masses; visualized solid organ contours appear normal in size. No suspicious abdom inal calcifications. Bones: No suspicious bony abnormalities. IMPRESSION: 1. Persistent small bowel obstructive pattern with interval increase in degree of gaseous distention of small bowel loops now measuring up to 5.7 cm in diameter. If indicated repeat CT could be perform ed. 2. Bibasilar atelectasis versus aspiration or pneumonia. Correlate clinically. Dictated by: Baldemar ORTEGA Interpreted: Jasper Gonzalez MD on 02/02/2017 at 9:57 Approved by: Jasper Gonzalez M.D. on 02/02/2017 at 10:20
--- NOTE | 2017-02-02 10:47 | PCM.PHAPRO ---
Progress TPN PER PHARMACY Wt: 77.4 - remains stable P: K continues to trend down, will increase KCl to 50 mEq Mg 1.9 this morning - increased Mg in mirella's TPN PARENTERAL NUTRITION ORDERS 3 02-Feb-17 Standard Hang Time: 2100 Substrates Total kcal: 1465 AMINO ACIDS 75 g DEXTROSE 225 g Total Volume (mL): 1500 LIPIDS 40 g Sterile Water for Injection mL To Infuse Over (hrs): 24 Total Volume 1500 mL At at a rate of (mL/hr): 63 Additives Sodium Chloride 90 mEq "typical" daily requirements Sodium Acetate 20 mEq Sodium 50-120mEq Potassium Chloride 50 mEq Potassium 60-120mEq Potassium Phosphate 40 mEq Phosphate 20-40mEq Calcium Gluconate 10 mEq Magnesium 8-32mEq Magnesium Sulfate 8 mEq Calcium 9-22mEq Acetate* 80-120mEq Chloride* 80-120mEq Regular Insulin 0 units *Depending on acid-base status Famotidine 0 mg Multivitamins 1 std dose Insulin Regimen Trace Elements 1 std dose none Thiamine 100 mg Regular Low Intensity Subcut Folic Acid 1 mg Regular Medium Intensity Subcut Ascorbic Acid 500 mg Regular High Intensity Subcut Regular Insulin Infusion Other: Special Instructions: To be infused via central line only. For delay or inturruption of TPN contact the pharmacist for alternative replacement solution. Signature Date: Mikael Shankar [address] [facility] Pharmacy will continue to follow, thank you! Kimberly Machado PharmD Feb 02, 2017 10:47
[2017-02-02] MEDS: Fluticasone 0.05% 15 Spray/2 Gm 16 Gm Nasal Spray NASAL SCH ×2 (13:21→21:25)
[2017-02-02 13:37] VITALS: BP 147/82; PULSE 66; RESP 18; O2SAT 97
--- NOTE | 2017-02-02 17:45 | PCM.PNSURG ---
Subjective Date of Service: Feb 01, 2017 Visit Information: Perforated Appendicitis with Peritonitis & Sepsis Laparoscopic Appendectomy 01/28/17 Post-Op Day # 4 Date of Admission: Jan 28, 2017 at 14:19 Hospital Day # 5 Subjective: No Appetitte, Still passing stool Abdomen full but soft Assessment & Plan Impression Stable, slow improvement in Ileus Problems: Plan TPN, NPO Abd Xray & CBC Jose Armando Ambulate, Avoid opioids Continue Luli Abdalla MD Feb 02, 2017 17:45
--- NOTE | 2017-02-02 17:47 | PCM.PNSURG ---
Subjective Date of Service: Feb 02, 2017 Visit Information: Perforated Appendicitis with Peritonitis & Sepsis Laparoscopic Appendectomy 01/28/17 Post-Op Day # 5 Date of Admission: Jan 28, 2017 at 14:19 Hospital Day # 6 Subjective: Continues to feel better. Passed stool & gas with enema Objective Vital Sign- Last 8 Hours Date Time Temp Pulse Resp B/P Pulse Ox O2 Delivery O2 Flow Rate FiO2 02/02/17 13:37 36.6 66 18 147/82 97 Room Air Intake and Output- Last 8 Hour 02/02/17 Cumulative From/Thru 07:00 01/28/17 10:45 - 02/02/17 06:51 Intake Total 922 ml 92205 ml Output Total 425 ml 7090 ml Balance 497 ml 6887 ml Intake Oral 200 ml 4490 ml IV Total 100 ml 8355 ml TPN/PPN 622 ml 1132 ml Output Urine Total 425 ml 7085 ml Estimated Blood Loss 5 ml # Bowel Movements 3 12 Result Diagram: 02/02/17 0520 02/02/17 0520 Diagnostics: Xray shows dilated bowel but lot more gas in the colon Assessment & Plan Impression Doing well Problems: Plan Ambulate NPO, TPN Zosyn Gastrograffin challenge Luli Reyes MD Feb 02, 2017 17:47
[2017-02-02 20:10] VITALS: BP 184/90; PULSE 80; RESP 16; O2SAT 96
[2017-02-02] MEDS: Total Parenteral Nutrition 1 BAG IV SCH (21:25)
[2017-02-02] MEDS: TPN Per Pharmacist XX SCH (21:26)
[2017-02-03] MEDS: MetoCLOpramide 5 mg/mL 2 mL Inj IVPUSH PRN ×3 (02:00→13:23)
[2017-02-03] MEDS: Piperacillin-Tazo 3.375 Gm Inj 3.375 GM in Dextrose 5% Minibag Plus 50 ML IV SCH ×3 (04:30→21:08)
[2017-02-03 05:25] VITALS: BP 162/78; PULSE 75; RESP 18; O2SAT 94
[2017-02-03 05:42] LABS: Magnesium 2.1 mg/dL (1.6-2.6); Phosphorus 3.2 mg/dL (2.5-4.9)
--- NOTE | 2017-02-03 09:06 | DRSVH ---
PROCEDURE: X-RAY ABDOMEN WITH ERECT AND/OR DECUBITUS VIEWS ([id number]) INDICATIONS: GASTROGRAFFIN STUDY TECHNIQUE: 2 views of the abdomen were acquired at 8:22 AM. Oral Gastrografin contrast was administ ered the prior evening at 6:40 PM. COMPARISON: [facility], CR, XR ABD W ERECT + OR DECUB 2 VW, 02/02/2017, 9:30. FINDINGS: Surgical changes and devices: Postsurgical changes are redemonstrated in the lower lumbar spine. Bowel: No pneumoperitoneum. There are persistent dilated loops of small bowel, measuring up to 6 cm in diameter with multiple air-fluid levels compatible with obstruction. There is dense oral contras t material demonstrated within the stomach and duodenum. In addition, there is also oral contrast de monstrated within the colon including rectosigmoid colon. Soft tissues: No suspicious abdominal calcifications. Bones: No suspicious bony abnormalities. IMPRESSION: 1. Persistent dilated loops of small bowel with air-fluid levels consistent with small bowel obstruc tion. However, presence of oral contrast in the rectosigmoid colon suggests an incomplete obstructio n. Dictated by: Andrea Hughes M.D. on 02/03/2017 at 8:58 Approved by: Andrea Hughes M.D. on 02/03/2017 at 9:04
[2017-02-03] MEDS: Fluticasone 0.05% 15 Spray/2 Gm 16 Gm Nasal Spray NASAL SCH ×2 (09:09→20:30)
--- NOTE | 2017-02-03 11:39 | PCM.PHAPRO ---
Progress TPN PER PHARMACY PARENTERAL NUTRITION ORDERS 4 - Standard Hang Time: 2100 Substrates Total kcal: 1465 AMINO ACIDS 75 g DEXTROSE 225 g Total Volume (mL): 1500 LIPIDS 40 g Sterile Water for Injection mL To Infuse Over (hrs): 24 Total Volume 1500 mL At at a rate of (mL/hr): 63 Additives Sodium Chloride 110 mEq "typical" daily requirements Sodium Acetate 20 mEq Sodium 50-120mEq Potassium Chloride 40 mEq Potassium 60-120mEq Potassium Phosphate 40 mEq Phosphate 20-40mEq Calcium Gluconate 10 mEq Magnesium 8-32mEq Magnesium Sulfate 8 mEq Calcium 9-22mEq Acetate* 80-120mEq Chloride* 80-120mEq Regular Insulin 0 units *Depending on acid-base status Famotidine 0 mg Multivitamins 1 std dose Insulin Regimen Trace Elements 1 std dose none Thiamine 100 mg Regular Low Intensity Subcut Folic Acid 1 mg Regular Medium Intensity Subcut Ascorbic Acid 500 mg Regular High Intensity Subcut Regular Insulin Infusion Other: Special Instructions: To be infused via central line only. For delay or inturruption of TPN contact the pharmacist for alternative replacement solution. Signature Date: Mikael Shankar [address] [facility] Pharmacy will continue to follow, thank you! Kimberly Machado PharmD Feb 03, 2017 11:38
[2017-02-03 15:47] VITALS: BP 172/70; PULSE 73; RESP 18; O2SAT 97
--- NOTE | 2017-02-03 19:47 | DRSVH ---
PROCEDURE: X-RAY GASTROGRAFIN CHALLENGE, 1 VIEW ABDOMEN INDICATIONS: HISTORY OF ILEUS; NG TUBE PLACEMENT TECHNIQUE: One view of the abdomen acquired. COMPARISON: [facility], CR, XR ABD W ERECT + OR DECUB 2 VW, 02/03/2017, 8:22. FINDINGS: Surgical changes and devices: Lower lumbar fixation hardware. Nasogastric tube is present with distal aspect projecting below the hemidiaphragm. Bowel: Bowel gas pattern demonstrates dilated prominent loops of small bowel. Contrast is noted with in the rectum. is noted within the rectum. Soft tissues: No suspicious abdominal calcifications. Visualized solid organ contours appear normal in size. Bones: No suspicious bony lesions. IMPRESSION: Nasogastric tube as above. Dilated loops of consistent partial small bowel traction. smal l bowel Dictated by: Irena Lowe M.D. on 02/03/2017 at 19:45 Approved by: Irena Lwoe M.D. on 02/03/2017 at 19:46
[2017-02-03 20:15] VITALS: BP 173/85; PULSE 77; RESP 20; O2SAT 97
[2017-02-03] MEDS: TPN Per Pharmacist XX SCH (20:46)
[2017-02-03] MEDS: Total Parenteral Nutrition 1 BAG IV SCH (21:08)
--- NOTE | 2017-02-04 00:10 | PCM.PNSURG ---
Subjective Date of Service: Feb 03, 2017 Visit Information: Perforated Appendicitis with Peritonitis & Sepsis Laparoscopic Appendectomy 01/28/17 Post-Op Day # 6 Date of Admission: Jan 28, 2017 at 14:19 Hospital Day # 7 Subjective: Still some nausea despite partial passage of contrast and stool Objective Vital Sign- Last 8 Hours Date Time Temp Pulse Resp B/P Pulse Ox O2 Delivery O2 Flow Rate FiO2 02/03/17 22:40 Supplement Oxygen 02/03/17 20:15 36.7 77 20 173/85 97 Room Air Intake and Output- Last 8 Hour 02/04/17 Cumulative From/Thru 07:00 01/28/17 10:45 - 02/03/17 22:40 Intake Total 71717 ml Output Total 44135 ml Balance 5760 ml Intake Oral 4890 ml IV Total 9258 ml TPN/PPN 2577 ml Output Urine Total 9210 ml Gastric Drainage Total 850 ml Emesis 900 ml Estimated Blood Loss 5 ml # Bowel Movements 15 Abdomen: Soft, Distended Result Diagram: 02/02/17 0520 02/03/17 0450 Assessment & Plan Impression Ileus - not resolved Problems: Plan Ambulate NPO, TPN Placed NG to suction Luli Abdalla MD Feb 04, 2017 00:10
[2017-02-04] MEDS: Piperacillin-Tazo 3.375 Gm Inj 3.375 GM in Dextrose 5% Minibag Plus 50 ML IV SCH (04:54)
[2017-02-04 05:14] VITALS: BP 168/80; PULSE 78; RESP 20; O2SAT 97
[2017-02-04 05:36] LABS: Phosphorus 2.9 mg/dL (2.5-4.9)
[2017-02-04] MEDS: Fluticasone 0.05% 15 Spray/2 Gm 16 Gm Nasal Spray NASAL SCH ×2 (08:30→20:04)
--- NOTE | 2017-02-04 09:59 | PCM.PHAPRO ---
Progress Date of Service: Feb 04, 2017 TPN PARENTERAL NUTRITION ORDERS 5 04-Feb-17 Standard Hang Time: 2100 Substrates Total kcal: 1465 AMINO ACIDS 75 g DEXTROSE 225 g Total Volume (mL): 1500 LIPIDS 40 g Sterile Water for Injection mL To Infuse Over (hrs): 24 Total Volume 1500 mL At at a rate of (mL/hr): 63 Additives Sodium Chloride 110 mEq "typical" daily requirements Sodium Acetate 20 mEq Sodium 50-120mEq Potassium Chloride 40 mEq Potassium 60-120mEq Potassium Phosphate 40 mEq Phosphate 20-40mEq Calcium Gluconate 10 mEq Magnesium 8-32mEq Magnesium Sulfate 8 mEq Calcium 9-22mEq Acetate* 80-120mEq Chloride* 80-120mEq Regular Insulin 0 units *Depending on acid-base status Famotidine 0 mg Multivitamins 1 std dose Insulin Regimen Trace Elements 1 std dose none Thiamine 100 mg Regular Low Intensity Subcut Folic Acid 1 mg Regular Medium Intensity Subcut Ascorbic Acid 500 mg Regular High Intensity Subcut Regular Insulin Infusion Other: Jean Carlos Howell Feb 04, 2017 09:59
--- NOTE | 2017-02-04 10:14 | PROG NOTE ---
[address] [address] PROGRESS NOTE PATIENT: TIERA SAUER : 1945 MR#: [id number] ADMIT: 01/28/2017 JOB ID: [id number] DATE: 02/04/2017 SUBJECTIVE: The patient is seen in followup. He had a very small bowel movement overnight. He has no nausea. He is complaining of discomfort mainly from the nasogastric tube. He denies significant abdominal pain. He thinks that he walked approximately 1 mile yesterday. OBJECTIVE: Temperature 36.8, pulse 78, blood pressure 168/80, saturation 97% on room air. In general, he is sitting up in bed, in no acute distress. HEENT: Nasogastric tube is putting out bilious fluid, 850 cc yesterday and 250 cc overnight. Output is bilious. Chest clear to auscultation bilaterally. Heart: Regular rate and rhythm. No murmurs. Abdomen is soft, but mildly distended. Bowel tones are present but hypoactive. His incisions are clean with no erythema. ASSESSMENT AND PLAN: A 72-year-old man status post laparoscopic appendectomy for perforated appendicitis, with postoperative ileus which persists. Recommend continuing TPN and nasogastric tube decompression for today. Because of the persistence of his ileus, we will go slow, and when the tube is ready to be removed, we will likely have it clamped for several hours before removal. He has completed seven days of antibiotics so we will stop antibiotics today.
[2017-02-04 12:07] VITALS: BP 156/83; PULSE 80; RESP 18; O2SAT 98
[2017-02-04 20:43] VITALS: BP 166/76; PULSE 74; RESP 20; O2SAT 96
[2017-02-04] MEDS: Total Parenteral Nutrition 1 BAG IV SCH (21:14)
[2017-02-04] MEDS: TPN Per Pharmacist XX SCH (21:14)
[2017-02-05 05:53] VITALS: BP 160/79; PULSE 82; RESP 16; O2SAT 97
[2017-02-05] MEDS: Fluticasone 0.05% 15 Spray/2 Gm 16 Gm Nasal Spray NASAL SCH ×2 (07:48→20:30)
--- NOTE | 2017-02-05 09:35 | PCM.PHAPRO ---
Progress Date of Service: Feb 05, 2017 TPN PARENTERAL NUTRITION ORDERS 6 05-Feb-17 Standard Hang Time: 2100 Substrates Total kcal: 1835 AMINO ACIDS 100 g DEXTROSE 275 g Total Volume (mL): 1800 LIPIDS 50 g Sterile Water for Injection mL To Infuse Over (hrs): 24 Total Volume 1800 mL At at a rate of (mL/hr): 75 Additives Sodium Chloride 110 mEq "typical" daily requirements Sodium Acetate 20 mEq Sodium 50-120mEq Potassium Chloride 40 mEq Potassium 60-120mEq Potassium Phosphate 40 mEq Phosphate 20-40mEq Calcium Gluconate 10 mEq Magnesium 8-32mEq Magnesium Sulfate 8 mEq Calcium 9-22mEq Acetate* 80-120mEq Chloride* 80-120mEq Regular Insulin 0 units *Depending on acid-base status Famotidine 0 mg Multivitamins 1 std dose Insulin Regimen Trace Elements 1 std dose none Thiamine 100 mg Regular Low Intensity Subcut Folic Acid 1 mg Regular Medium Intensity Subcut Ascorbic Acid 500 mg Regular High Intensity Subcut Regular Insulin Infusion Other: Special Instructions: To be infused via central line only. For delay or inturruption of TPN contact the pharmacist for alternative replacement solution. Jean Carlos Howell Feb 05, 2017 09:34
--- NOTE | 2017-02-05 10:09 | PROG NOTE ---
[address] [address] PROGRESS NOTE PATIENT: TIERA SAUER : 1945 MR#: [id number] ADMIT: 01/28/2017 JOB ID: [id number] DATE: 02/05/2017 SUBJECTIVE: The patient is seen in followup. Yesterday his nasogastric tube inadvertently fell out while he was ambulating. Decision was made not to replace it. He has done well with no nausea overnight. He had a small liquid bowel movement. He complains of very little abdominal discomfort. OBJECTIVE: Temperature 36.9, pulse 82, blood pressure 160/79. Saturation 97% on room air. In general, he is resting in bed in no acute distress. Chest is clear. Heart regular rate and rhythm, no murmurs. Abdomen is mildly distended. Bowel tones are quiet. His incisions are clean with no erythema. ASSESSMENT AND PLAN: A 72-year-old man with a perforated appendicitis status post laparoscopic appendectomy complicated by postoperative ileus, which persists to some extent. We are going to hold off on replacing his nasogastric tube for now. I will recheck some labs tomorrow including CBC and complete metabolic panel. We may need to get a CT scan tomorrow depending on his labs and how he progresses today, potentially looking for an intraabdominal abscess.
[2017-02-05] MEDS: Polyethylene Glycol (PEG) 17 Gm Powder PO SCH (11:59)
[2017-02-05 12:19] VITALS: BP 161/87; PULSE 87; RESP 18; O2SAT 97
[2017-02-05 20:55] VITALS: BP 163/78; PULSE 74; RESP 18; O2SAT 97
[2017-02-05] MEDS: Total Parenteral Nutrition 1 BAG IV SCH (21:24)
[2017-02-05] MEDS: TPN Per Pharmacist XX SCH (21:24)
[2017-02-06 05:15] LABS: BASOPHILS % (AUTO) 0.3 % (0-3); EOSINOPHILS % (AUTO) 2.9 % (0-5); MONOCYTES % (AUTO) 12.2 % (4-12); Mean Corpuscular Hemoglobin 31.4 pg (27.0-35.0); Mean Corpuscular Volume 94.5 fL (81-100); NEUTROPHILS % (AUTO) 65.1 % (40-74); Platelet Count 319 bil/L (150-400)
[2017-02-06 06:10] VITALS: BP 148/72; PULSE 72; RESP 20; O2SAT 96
[2017-02-06 08:20] VITALS: BP 165/89; PULSE 79; RESP 18; O2SAT 97
[2017-02-06] MEDS: Polyethylene Glycol (PEG) 17 Gm Powder PO SCH (08:21)
[2017-02-06] MEDS: Fluticasone 0.05% 15 Spray/2 Gm 16 Gm Nasal Spray NASAL SCH ×2 (08:23→20:30)
[2017-02-06] MEDS ORDERED: Polyethylene Glycol (PEG) 17 Gm Powder PO PRN (09:00)
[2017-02-06 12:42] VITALS: BP 150/78; PULSE 81; RESP 16; O2SAT 99
--- NOTE | 2017-02-06 13:08 | PROG NOTE ---
[address] [address] PROGRESS NOTE PATIENT: TIERA SAUER : 1945 MR#: [id number] ADMIT: 01/28/2017 JOB ID: [id number] DATE: 02/06/2017 SUBJECTIVE: The patient is seen in followup. He continues to improve slowly. He had a bowel movement and passed some flatus this morning. He has no nausea. He has been tolerating a clear liquid diet. OBJECTIVE: Temperature 36.7, pulse 79, blood pressure 165/89, saturation 97% on room air. General: He is resting in bed in no acute distress. Chest is clear. Heart: Regular rate and rhythm. No murmurs. Abdomen is still distended but improved. Bowel tones are more normal sounding. His incisions are clean with no erythema. LABORATORIES: White count is 6.3, hematocrit 32.8, platelets 319. Creatinine 0.72, glucose 105, and albumin 3.0. ASSESSMENT/PLAN: A 71-year-old man status post laparoscopic appendectomy for perforated appendicitis, complicated by postoperative ileus. Ileus is improving slowly. I do not think a CT scan is indicated yet. We will advance his diet to full liquids. We will make his MiraLAX available as needed. We will restart his home lisinopril. TPN will be continued for today, but I think potentially it could be cut back by 50% or turned off tomorrow.
[2017-02-06 19:40] VITALS: BP 154/72; PULSE 84; RESP 16; O2SAT 99
[2017-02-06] MEDS: TPN Per Pharmacist XX SCH (21:00)
[2017-02-06] MEDS: Total Parenteral Nutrition 1 BAG IV SCH (21:12)
[2017-02-07 04:45] VITALS: BP 143/76; PULSE 69; RESP 16; O2SAT 96
[2017-02-07] MEDS: Fluticasone 0.05% 15 Spray/2 Gm 16 Gm Nasal Spray NASAL SCH ×2 (08:30→20:01)
[2017-02-07 08:51] VITALS: BP 159/80; PULSE 90; RESP 17; O2SAT 98
--- NOTE | 2017-02-07 16:41 | PCM.PNSURG ---
Subjective Date of Service: Feb 07, 2017 Visit Information: Perforated Appendicitis with Peritonitis & Sepsis Laparoscopic Appendectomy 01/28/17 Post-Op Day # 10 Date of Admission: Jan 28, 2017 at 14:19 Hospital Day # 11 Subjective: Tolerating a full liquid diet, Having BMs Objective Vital Sign- Last 8 Hours Date Time Temp Pulse Resp B/P Pulse Ox O2 Delivery O2 Flow Rate FiO2 02/07/17 08:51 36.8 90 17 159/80 98 Room Air Intake and Output- Last 8 Hour 02/07/17 Cumulative From/Thru 07:00 01/28/17 10:45 - 02/07/17 06:24 Intake Total 1631 ml 96164 ml Output Total 1800 ml 57031 ml Balance -169 ml 6909 ml Intake Oral 950 ml 8956 ml IV Total 681 ml 30250 ml TPN/PPN 5558 ml Output Urine Total 1800 ml 74290 ml Gastric Drainage Total 1150 ml Emesis 900 ml Estimated Blood Loss 5 ml # Bowel Movements 0 18 Abdomen: Soft, Other (Incisions C/D/I ) Result Diagram: 02/06/17 0500 02/07/17 1309 Assessment & Plan Impression Doing well Problems: Plan Urinary retention: DC Lynn - increase flomax to 1.2 mg temporarily Regular diet Wean off TPN Ambulate Plan DC Home tomorrow if doing well Luli Reyes MD Feb 07, 2017 16:41
[2017-02-07 17:06] VITALS: BP 149/70; PULSE 89; RESP 18; O2SAT 99
[2017-02-07 19:50] VITALS: BP 157/78; PULSE 80; O2SAT 98
[2017-02-07] MEDS: TPN Per Pharmacist XX SCH (21:00)
[2017-02-08 05:21] VITALS: BP 134/69; PULSE 79; RESP 16; O2SAT 94
--- NOTE | 2017-02-08 06:52 | PCM.PNSURG ---
Subjective Visit Information: Perforated Appendicitis with Peritonitis & Sepsis Laparoscopic Appendectomy 01/28/17 Post-Op Day # 11 Date of Admission: Jan 28, 2017 at 14:19 Hospital Day # 12 Objective Vital Sign- Last 8 Hours Date Time Temp Pulse Resp B/P Pulse Ox O2 Delivery O2 Flow Rate FiO2 02/08/17 05:21 36.8 79 16 134/69 94 Room Air Intake and Output- Last 8 Hour 02/08/17 Cumulative From/Thru 07:00 01/28/17 10:45 - 02/08/17 05:14 Intake Total 1914 ml 66939 ml Output Total 1400 ml 21704 ml Balance 514 ml 8366 ml Intake Oral 1600 ml 26837 ml IV Total 75998 ml TPN/PPN 314 ml 6565 ml Output Urine Total 1400 ml 04301 ml Gastric Drainage Total 1150 ml Emesis 900 ml Estimated Blood Loss 5 ml # Bowel Movements 1 19 Abdomen: Soft, Other (Minimally tender in LLQ) Result Diagram: 02/06/17 0500 02/07/17 1309 Assessment & Plan Impression Doing well Problems: Plan Ileus - resolved Sepsis - resolved Urinary retention - resolved Discharge Home F/U in surgery clinic in 2 weeks Luli Reyes MD Feb 08, 2017 06:52
[2017-02-08] MEDS: Fluticasone 0.05% 15 Spray/2 Gm 16 Gm Nasal Spray NASAL SCH (08:02)
[2017-02-08 10:40] VITALS: BP 145/69; PULSE 89; RESP 16; O2SAT 99
[2017-02-08 11:22] LABS: BASOPHILS % (AUTO) 0.2 % (0-3); EOSINOPHILS % (AUTO) 1.2 % (0-5); MONOCYTES % (AUTO) 8.1 % (4-12); Mean Corpuscular Hemoglobin 31.6 pg (27.0-35.0); Mean Corpuscular Volume 95.6 fL (81-100); NEUTROPHILS % (AUTO) 76.4 % (40-74); Platelet Count 392 bil/L (150-400)
--- NOTE | 2017-02-08 12:18 | PCM.DISURG ---
Surgical Discharge Instruction Date of Service Feb 08, 2017 Dates of Hospitalization Date of Hospital Admission Jan 28, 2017 at 14:19 Providers Admitting Physician: Luli Reyes MD Primary Care Physician: Carmen Mota MD Attending Physician: Sommer Reyes MD Discharge Diagnosis Post Operative diagnosis Acute Perforated Appendicitis with peritonitis & Sepsis Urinary retention Postoperative Ileus Hypertension Diet Discharge Diet: No restrictions Activity Discharge Activity-General: No lifting >15 pounds for 2 weeks Dressing and Incisional Care Dressing Care: Allow Steri Stripes to fall off Hygiene: May shower Follow Up Plan Follow-up Provider (F9): Radha Dudley PAC Follow-up appointment: Weeks (2) Luil Reyes MD Feb 08, 2017 12:18
--- NOTE | 2017-02-08 14:43 | PCM.DC.SUR ---
Discharge Summary Date of Service: Feb 08, 2017 Date of Hospital Admission: Jan 28, 2017 at 14:19 Date of Operation(s): Jan 28, 2017 Date of Discharge: Feb 08, 2017 Diagnosis at Time of Discharge Acute Perforated Appendicitis with peritonitis & Sepsis Problems: (1) Hypertension Status: Acute ICD Code: I10 (2) Postoperative ileus Status: Acute ICD Code: K91.3 (3) Urinary retention Status: Acute ICD Code: R33.9 Operation Laparoscopic appendectomy. Brief History and Physical: HISTORY The patient is a 71-year-old gentleman who was in his usual state of good health until yesterday morning. He started having some abdominal pain around noon yesterday but still had a good appetite. He was even able to have dinner last night. He started having fevers and he had problems with pain all night, but he was able to get some sleep. This morning when he woke up he was still having a lot of pain and because of the pain he was having even trouble getting out of bed because any movement hurt. He was able to make it to the bathroom and had a bowel movement. He does continue to pass some gas. Because of the severe pain they went to [facility] and they were sent to the emergency department from there. In the emergency department he was evaluated and Dr. Alvarado called me with the findings of some free air outside the bowel on the CT scan. He got some relief with the pain medication in the emergency department, but it seems to be wearing off and he is having more pain. He had a normal colonoscopy in 2006 and he is due for his next one this year. PHYSICAL EXAM A 71-year-old gentleman in mild distress. Temperature 37.9, pulse 114, respiratory rate 22, blood pressure 142/63, saturating 96% on room air. Eyes:Normal pupils, conjunctivae. Ears, nose, and throat: Normal external appearance. Neck: No lymphadenopathy or jugular venous distention. Respiratory: Normal effort, clear to auscultation. Cardiovascular: Regular rate and rhythm. Chest: Normal. Gastrointestinal: Tender to palpation, more so in the lower abdomen, maximally in the right lower quadrant with focal peritonitis. Neurologic: No gross deficits. Psych: Alert, appropriate. Musculoskeletal: Normal strength in the extremities. Skin: Normal. Consultants: Hospitalist service Hospital Course: The patient was taken to the operating room for a laparoscopic appendectomy. Please refer to the operative report for further details of the procedure. He tolerated the procedure well and was transferred to his hospital room where he remained for the balance of his hospital stay. A weak urinary stream was encountered and a urinary catheter was left in place. Flomax was started which helped to improve flow after several days. The catheter was then removed. A postoperative ileus was also encountered including nausea, which necessitated the start of parenteral nutrition and a few days of nasogastric tube placement. On postoperative day 11, the patient was able to void and bowel function had returned. His leukocytosis also improved. His pain was controlled and he was able to ambulate. He was then discharged to home in stable condition. Pathology: Appendix, Appendectomy: Acute suppurative appendicitis with serositis. No evidence of neoplasm. Disposition: Home in stable condition Follow-up Plan: Follow-up Provider (F9): Radha Dudley PAC Follow-up appointment: Weeks (2) Allopurinol (Allopurinol) 100 Mg Tablet 200 MG PO DAILY (Reported) Betamethasone/Propylene Glyc (Betamethasone Dp Aug 0.05% Crm) 15 Gm Cream..g. 15 GM TP (Reported) Fluticasone Propionate (Fluticasone Propionate Nasal) 16 Gm [place].susp 1 SPRAY NS BID (Reported) Gabapentin (Gabapentin) 400 Mg Capsule 300 MG PO TID (Reported) Lisinopril (Lisinopril) 20 Mg Tablet 20 MG PO DAILY (Reported) Tamsulosin ER (Tamsulosin ER) 0.4 Mg Cap.er.24h 0.8 MG PO DAILY (Reported) copies to: Carmen Mota MD; Sommer Reyes MD, Samuel L PA-C Feb 08, 2017 14:43
== END 2017-02-08 14:05 | disposition home or self-care (01) | DRG 853 ==
LOC: SED 10:32 → SAS 14:11 → OSC 14:19
PROVIDERS: ADMIT Student in an Organized Health Care Education/Training Program; ATTEND Student in an Organized Health Care Education/Training Program
PROC: 0DTJ4ZZ Resection of Appendix, Percutaneous Endoscopic Approach (ICD-10-PCS; principal; 2017-01-28 14:30)
PROC: 3E0436Z Introduction of Nutritional Substance into Central Vein, Percutaneous Approach (ICD-10-PCS; 2017-01-31)
DX: A41.9 Sepsis, unspecified organism (principal); K35.2 Acute appendicitis with generalized peritonitis; K56.7 Ileus, unspecified; I10 Essential (primary) hypertension; J45.909 Unspecified asthma, uncomplicated; R33.9 Retention of urine, unspecified